=== PATIENT | male | born 1965 | race Caucasian/White ===

== ENCOUNTER 2018-11-01 08:26 | Day surgery (SDC) | payer BC ==
[2018-10-31 08:02] VITALS: BMI 35.4
[~2018-11-01 08:26] MED LIST: DEXAMETHASONE SOD PHOSPHATE 10 MG/ML 1 ML VIAL IV ONE; HYDROmorphone 0.5 MG/0.5 ML SYRINGE IVP PRN; LACTATED RINGERS 1,000 ML IV SCH; ONDANSETRON 4 MG/2 ML VIAL IVP ONE
[2018-11-01] MEDS ORDERED: LIDOCAINE 1% 20 ML VIAL (10MG/ML) FOR IV START INTRADERMA ONE (08:50)
[2018-11-01] MEDS ORDERED: PROPOFOL 10 MG/ML 20 ML VIAL IV ONE (08:54)
[2018-11-01 08:57] VITALS: RESP 16; TEMP 97.4
--- NOTE | 2018-11-01 09:02 | P.GSHP ---
History of Present Illness H&P Date: 11/01/18 Chief Complaint: Screening colonoscopy This is a 53-year-old male who presents today screening colonoscopy. Patient denies any significant GI complaints. He's never had a colonoscopy before. Past Medical History Past Medical History: Hypertension, Sleep Apnea/CPAP/BIPAP Additional Past Medical History / Comment(s): narcolepsy,no cpap History of Any Multi-Drug Resistant Organisms: MRSA Date of last positivie culture/infection: knee/wrist MDRO Source:: 2011 Past Surgical History: Heart Catheterization Additional Past Surgical History / Comment(s): nasal Past Anesthesia/Blood Transfusion Reactions: No Reported Reaction Smoking Status: Never smoker - Past Family History Mother Family Medical History: No Reported History Medications and Allergies Home Medications Medication Instructions Recorded Confirmed Type Hydrochlorothiazide [Hydrodiuril] 25 mg PO DAILY 10/31/18 11/01/18 History Lisinopril 20 mg PO QAM 10/31/18 11/01/18 History amLODIPine BESYLATE 5 mg PO QAM 10/31/18 11/01/18 History Allergies Allergy/AdvReac Type Severity Reaction Status Date / Time Tetanus Vaccines and Toxoid Allergy Unknown Verified 11/01/18 08:42 [Tetanus Vaccines & Toxoid] Childhood Surgical - Exam Vital Signs Temp Pulse Resp BP Pulse Ox 97.4 F L 78 16 133/87 94 L 11/01/18 08:53 11/01/18 08:53 11/01/18 08:53 11/01/18 08:53 11/01/18 08:53 - General well developed, well nourished, no distress - Eyes PERRL - ENT normal pinna - Neck no masses - Respiratory normal expansion - Cardiovascular Rhythm: regular - Abdomen Abdomen: soft, non tender Assessment and Plan Assessment: We'll perform screening colonoscopy.
--- NOTE | 2018-11-01 09:14 | P.OP ---
Date of Procedure: 11/01/18 Preoperative Diagnosis: Screening colonoscopy Postoperative Diagnosis: Diverticulosis Procedure(s) Performed: Colonoscopy Anesthesia: MAC Surgeon: Robby Mccoy Pathology: none sent Condition: stable Disposition: PACU Description of Procedure: The patient's placed on the endoscopy table in the lateral position. He received IV sedation. Digital rectal exam was performed which revealed no ebonized. The flexible colonoscope was then placed patient anus and passed throughout the entire colon. The ileocecal valve was visually is. The cecum, ascending and transverse colon appeared normal. In the descending and sigmoid there was was mild diverticular changes. The scope was then brought back into back the rectum and this appeared normal. Scope was withdrawn for patient.
[2018-11-01 09:36] VITALS: BP 114/78; PULSE 79
== END 2018-11-01 09:58 | disposition home or self-care (01) ==
LOC: ORWHC2ENDO 08:26
PROVIDERS: ATTEND Surgery
DX: Z12.11 Encounter for screening for malignant neoplasm of colon (principal); I10 Essential (primary) hypertension; G47.30 Sleep apnea, unspecified; Z88.7 Allergy status to serum and vaccine; Z86.14 Personal history of Methicillin resistant Staphylococcus aureus infection; Z79.899 Other long term (current) drug therapy
CPT/HCPCS: J2704; G0121

== ENCOUNTER → 2020-08-22 | Outpatient (CLI) | payer BC ==
[2020-08-22 16:06] LABS: African American GFR (CKD) 96.4 (60.0-200.0); Albumin 4.7 g/dL (3.80-4.90); Albumin/Globulin Ratio 1.88 (1.60-3.17); Anion Gap 12.5 mmol/L (4.00-12.00); Calcium 9.3 mg/dL (8.7-10.3); Carbon Dioxide 23.5 mmol/L (21.6-31.8); Chol/HDL Ratio 6.64; Globulin 2.5 g/dL (1.6-3.3); LDL Cholesterol,Calculated 146.4 mg/dL (0.0-131.0); Non-African American GFR(CKD) 83.2 (60.0-200.0); Potassium 4.1 mmol/L (3.5-5.5); Total Bilirubin 0.8 mg/dL (0.3-1.2); Total Protein 7.2 g/dL (6.2-8.2); VLDL Calculation 39.6 mg/dL (5.00-40.00)
== END | disposition home or self-care (01) ==
LOC: LABWHC1 08:30
PROVIDERS: ATTEND Nurse Practitioner Family
DX: I10 Essential (primary) hypertension (principal); E55.9 Vitamin D deficiency, unspecified; E29.1 Testicular hypofunction; Z79.899 Other long term (current) drug therapy
CPT/HCPCS: 36415; 80053; 80061; 82040; 82306; 84270; 84403

== ENCOUNTER → 2021-04-21 | Outpatient (CLI) | payer BC ==
--- NOTE | 2021-04-21 09:23 | XR ---
EXAMINATION TYPE: XR chest 2V DATE OF EXAM: 04/21/2021 COMPARISON: Chest x-ray March 04, 2014 HISTORY: Right-sided chest pain. TECHNIQUE: Frontal and lateral views of the chest are obtained. FINDINGS: There is new small to moderate right-sided pleural fusion or fluid collection with nonlaye ring component extending into the apex. Masslike opacity right mid lung posteriorly could reflect tra pped fluid, underlying mass or nodule not excluded.. Basal opacity consistent with atelectasis and/or infiltrate. Left lung is clear. The cardiac silhouette size is upper limits of normal. The osseous structures are intact. IMPRESSION: New small to moderate-sized right pleural fluid collection. New Right basilar atelectasis and/or infiltrate. Underlying mass or nodule not excluded. Contrast-enhance d chest CT follow-up advised.
== END | disposition home or self-care (01) ==
LOC: RADXRMAIN 09:05
PROVIDERS: ATTEND Nurse Practitioner Women's Health
DX: J94.8 Other specified pleural conditions (principal)
CPT/HCPCS: 71046

== ENCOUNTER → 2021-05-05 | Outpatient (CLI) | payer BC ==
--- NOTE | 2021-05-05 08:55 | CT ---
EXAMINATION TYPE: CT chest w con DATE OF EXAM: 05/05/2021 COMPARISON: Chest x-ray April 21, 2021 HISTORY: Rt sided chest pain, SIMÓN, coughing. Recent abnormal chest x-ray. CT DLP: 466.5 mGycm. Automated Exposure Control for Dose Reduction was Utilized. TECHNIQUE: CT scan of the thorax is performed following with IV Contrast, patient injected with 100 mL of Isovue 300. FINDINGS: LUNGS: There is small right pleural effusion or pleural fluid collection confirmed. Pleural fluid col lection is slightly more prominent medial component extending superiorly for reference coronal image 70. This is associated compressive atelectasis. There is slightly more prominent consolidation than t ypical for compressive atelectasis with air bronchograms in the posterior aspect of the right lower l obe. There is [id number] right basilar linear scarring and/or atelectasis. Left lung is clear. MEDIASTINUM: There are abnormal thoracic lymph nodes involving right hilar along with paratracheal an d subcarinal regions. For reference there is 2.1 x 1.3 cm pericarinal lymph node axial image 23. Ther e are confluent abnormal subcarinal and right hilar lymph nodes. No cardiomegaly or pericardial effus ion is seen. Coronary artery calcifications present which is noted marker for underlying coronary ar jorge alberto disease OTHER: There are simple appearing 2.4 cm thin-walled cyst medially in the left kidney midpole level a xial image 74. Flame-shaped bilateral subareolar gynecomastia is noted. IMPRESSION: There is small right pleural fusion or fluid collection perhaps slightly improved from re cent x-ray. There is associated right lower lobe atelectasis with areas of consolidation with air bro nchograms. No definitive mass or nodule identified. There is however abnormal thoracic adenopathy not ed. Neoplasm cannot be excluded though somewhat atypical pattern. Consider PET/CT follow-up and/or br onchoscopy evaluation based on clinical correlation.
== END | disposition home or self-care (01) ==
LOC: RADCTMAIN 08:16
PROVIDERS: ATTEND Family Medicine
DX: J98.11 Atelectasis (principal); J90 Pleural effusion, not elsewhere classified
CPT/HCPCS: 71260; Q9967

== ENCOUNTER → 2021-05-22 | Outpatient (CLI) | payer BC ==
--- NOTE | 2021-05-23 08:10 | US ---
EXAMINATION TYPE: US chest DATE OF EXAM: 05/22/2021 COMPARISON: NONE CLINICAL HISTORY: J90 pleural effusion. TECHNIQUE: Targeted ultrasound of the posterior lower right hemithorax EXAM MEASUREMENTS: Right Pleural Effusion pocket size: 4.6 cm Right skin surface to fluid distance: 3.3 cm Right side marked for possible thoracentesis outside the dept. Pulmonologists are able to review the images in the patient?s EMR. IMPRESSIONS: 1. Right pleural effusion
== END | disposition home or self-care (01) ==
LOC: RADUSWWP 16:12
PROVIDERS: ATTEND Internal Medicine
DX: J90 Pleural effusion, not elsewhere classified (principal)
CPT/HCPCS: 76604

== ENCOUNTER → 2023-02-13 | Outpatient (CLI) | payer BC ==
[2023-02-13 13:39] LABS: Prostate Specific Antigen 0.6 ng/mL (0.00-4.50)
== END | disposition home or self-care (01) ==
LOC: LABWHC1 08:44
PROVIDERS: ATTEND Family Medicine
DX: E29.1 Testicular hypofunction (principal)
CPT/HCPCS: 36415; 82040; 84153; 84270; 84402; 84403

== ENCOUNTER → 2024-11-10 | Outpatient (CLI) | payer BC | END | disposition home or self-care (01) | LOC: LABWHC1 08:04 | PROVIDERS: ATTEND Family Medicine | DX: E29.1 Testicular hypofunction (principal); Z79.899 Other long term (current) drug therapy | CPT/HCPCS: 36415; 82040; 84153; 84270; 84403 ==